=== PATIENT | male | born 1940 | race Caucasian/White ===

== ENCOUNTER 2017-07-15 17:33 | Emergency (ER) | payer MEDICARE, OTHER ==
[~2017-07-15] VITALS: Ht 162.6 cm; Wt 59.0 kg
[~2017-07-15 17:33] MED LIST: AMOX500 PO; ASPI81EC PO; ATEN50 PO; ATOR10 PO; Aspir 8181 MG PO; CHOL10002 PO; CITA20; DILT60ER; DULO60 PO; FOLBIC RF TABL1 EACH PO; FOLI1 PO; FURO20 PO; IBUP800 PO; LISI20 PO; LISI5 PO; LOVASTATIN; Lipitor20 MG PO; Micro-K10 MEQ PO; NAPR500; NITRO TIME PO; Naprosyn500 MG PO; OXYACE5T PO; Roxicodone5 MG PO; STATIN; UNKNOWN BP MED; WARF5; WARF5 PO; [UNRECOGNIZED DRUG - REMARK]; [UNRECOGNIZED DRUG - REMARK]
[2017-07-15 18:09] LABS: BASOPHILS ABSOLUTE AUTO 0.08 K/mm3 (0.00-0.23); BASOPHILS PERCENT AUTO 1 % (0-2); EOSINOPHILS PERCENT AUTO 3 % (0-6); Hematocrit 39.9 % (37.0-53.0); Hemoglobin 12.8 g/dL (13.5-17.5); IMMATURE GRAN ABSOLUTE AUTO 0.02 K/mm3 (0.00-0.10); IMMATURE GRAN PERCENT AUTO 0 % (0-1); LYMPHOCYTES ABSOLUTE AUTO 2.11 K/mm3 (0.84-5.20); LYMPHOCYTES PERCENT AUTO 34 % (21-46); MONOCYTES ABSOLUTE AUTO 0.66 K/mm3 (0.16-1.47); MONOCYTES PERCENT AUTO 11 % (4-13); Mean Corpuscular HGB 32.1 pg (26.0-34.0); Mean Corpuscular HGB Conc 32.1 g/dL (31.5-36.5); Mean Corpuscular Volume 100 fL (80-100); Mean Platelet Volume 11.1 fL (9.1-12.4); NEUTROPHILS ABSOLUTE AUTO 3.14 K/mm3 (1.96-9.15); NEUTROPHILS PERCENT AUTO 51 % (41-73); Platelet Count 151 K/mm3 (150-400); RDW Standard Deviation 51.7 fL (35.1-46.3); Red Blood Cell Count 3.99 M/mm3 (4.30-5.90); White Blood Cell Count 6.21 K/mm3 (4.00-11.30)
[2017-07-15 18:25] LABS: Anion Gap 6 mmol/L (6-16); Blood Urea Nitrogen 17 mg/dL (8-24); Bun/Creatinine Ratio 14.5 (12.0-20.0); CO2, Blood 28 mmol/L (21-32); Calcium, Blood 8.7 mg/dL (8.5-10.1); Chloride, Blood 112 mmol/L (98-108); Creatinine, Blood 1.17 mg/dL (0.60-1.20); Glomerular Filtration Rate >60 (60-); Glucose, Blood 80 mg/dL (70-99); Potassium, Blood 4.5 mmol/L (3.5-5.5); Sodium, Blood 146 mmol/L (136-145)
== END 2017-07-15 19:36 | disposition home or self-care (01) ==
LOC: ER 17:33
PROVIDERS: Emergency Medicine
DX: I48.91 Unspecified atrial fibrillation (principal); Z79.899 Other long term (current) drug therapy; Z79.82 Long term (current) use of aspirin; I25.10 Atherosclerotic heart disease of native coronary artery without angina pectoris; J44.9 Chronic obstructive pulmonary disease, unspecified; I10 Essential (primary) hypertension; E78.5 Hyperlipidemia, unspecified; F03.90 Unspecified dementia, unspecified severity, without behavioral disturbance, psychotic disturbance, mood disturbance, and anxiety; F17.210 Nicotine dependence, cigarettes, uncomplicated
CPT/HCPCS: 71046; 80048; 83735; 85025; 93005; 93010; 96374; 99284

== ENCOUNTER 2018-07-29 22:00 | Observation (INO) | payer MEDICARE, OTHER ==
[~2018-07-29] VITALS: Ht 167.6 cm; Wt 59.0 kg
[2018-07-29] MEDS ORDERED: METO25ER PO (22:24)
[2018-07-29 22:25] LABS: BASOPHILS ABSOLUTE AUTO 0.09 K/mm3 (0.00-0.23); BASOPHILS PERCENT AUTO 1 % (0-2); EOSINOPHILS ABSOLUTE AUTO 0.19 K/mm3 (0.00-0.68); EOSINOPHILS PERCENT AUTO 2 % (0-6); Hematocrit 39.2 % (37.0-53.0); Hemoglobin 12.1 g/dL (13.5-17.5); IMMATURE GRAN ABSOLUTE AUTO 0.04 K/mm3 (0.00-0.10); IMMATURE GRAN PERCENT AUTO 1 % (0-1); LYMPHOCYTES ABSOLUTE AUTO 2.18 K/mm3 (0.84-5.20); LYMPHOCYTES PERCENT AUTO 28 % (21-46); MONOCYTES ABSOLUTE AUTO 0.64 K/mm3 (0.16-1.47); MONOCYTES PERCENT AUTO 8 % (4-13); Mean Corpuscular HGB 31.5 pg (26.0-34.0); Mean Corpuscular HGB Conc 30.9 g/dL (31.5-36.5); Mean Corpuscular Volume 102 fL (80-100); Mean Platelet Volume 10.7 fL (9.1-12.4); NEUTROPHILS ABSOLUTE AUTO 4.62 K/mm3 (1.96-9.15); NEUTROPHILS PERCENT AUTO 60 % (41-73); Platelet Count 149 K/mm3 (150-400); RDW Coefficient Variation 13.7 % (11.7-14.2); RDW Standard Deviation 51.5 fL (35.1-46.3); Red Blood Cell Count 3.84 M/mm3 (4.30-5.90); White Blood Cell Count 7.76 K/mm3 (4.00-11.30)
[2018-07-29 22:45] LABS: Alanine Aminotransfer (ALT/SGP 23 U/L (12-78); Albumin, Blood 3.2 g/dL (3.4-5.0); Albumin/Globulin Ratio 1.1 (0.8-1.8); Alk Phos 65 U/L (50-136); Anion Gap 8 mmol/L (6-16); Aspartate Aminotrans (AST/SGOT 29 U/L (12-37); Bilirubin, Total 0.4 mg/dL (0.1-1.0); Blood Urea Nitrogen 24 mg/dL (8-24); Bun/Creatinine Ratio 14.2 (12.0-20.0); CO2, Blood 26 mmol/L (21-32); Calcium, Blood 8.4 mg/dL (8.5-10.1); Chloride, Blood 113 mmol/L (98-108); Creatinine, Blood 1.69 mg/dL (0.60-1.20); Glomerular Filtration Rate 42 (60-); Glucose, Blood 98 mg/dL (70-99); Potassium, Blood 4.4 mmol/L (3.5-5.5); Sodium, Blood 147 mmol/L (136-145); Total Protein, Blood 6.2 g/dL (6.4-8.2); Troponin I 0.049 ng/mL (0.000-0.040)
[2018-07-30 05:41] LABS: BASOPHILS ABSOLUTE AUTO 0.07 K/mm3 (0.00-0.23); BASOPHILS PERCENT AUTO 1 % (0-2); EOSINOPHILS ABSOLUTE AUTO 0.17 K/mm3 (0.00-0.68); EOSINOPHILS PERCENT AUTO 3 % (0-6); Hematocrit 36.1 % (37.0-53.0); Hemoglobin 11.3 g/dL (13.5-17.5); IMMATURE GRAN ABSOLUTE AUTO 0.02 K/mm3 (0.00-0.10); IMMATURE GRAN PERCENT AUTO 0 % (0-1); LYMPHOCYTES ABSOLUTE AUTO 1.67 K/mm3 (0.84-5.20); LYMPHOCYTES PERCENT AUTO 26 % (21-46); MONOCYTES ABSOLUTE AUTO 0.61 K/mm3 (0.16-1.47); MONOCYTES PERCENT AUTO 9 % (4-13); Mean Corpuscular HGB Conc 31.3 g/dL (31.5-36.5); Mean Corpuscular Volume 102 fL (80-100); Mean Platelet Volume 11.3 fL (9.1-12.4); NEUTROPHILS ABSOLUTE AUTO 3.92 K/mm3 (1.96-9.15); NEUTROPHILS PERCENT AUTO 61 % (41-73); Platelet Count 137 K/mm3 (150-400); RDW Coefficient Variation 13.7 % (11.7-14.2); RDW Standard Deviation 51.9 fL (35.1-46.3); Red Blood Cell Count 3.53 M/mm3 (4.30-5.90); White Blood Cell Count 6.46 K/mm3 (4.00-11.30)
[2018-07-30 06:00] LABS: Bun/Creatinine Ratio 17.7 (12.0-20.0); Calcium, Blood 8.5 mg/dL (8.5-10.1); Creatinine, Blood 1.64 mg/dL (0.60-1.20); Potassium, Blood 4.1 mmol/L (3.5-5.5)
--- NOTE | 2018-07-30 06:01 | NUR ---
SHIFT SUMMARY AND TRANSFER NOTE: PT NW ED ADMIT LATE TONIGHT. PER REPORT, PT HAD A SYNCOPIAL EPISODE AND R SIDE DEFICITS. UPON ARRIVAL TO ER, SYMPTOMS HAD RESOLVED. PT FOUND TO BE IN A FIB c RVR. PT CONVERTD BACK TO NSR IN THE ER. PT ADMITTED OBS STATUS TO [facility] SYMPTOMS, TELEMETRY, AND ECHO. PT ARRIVED TO UNIT VIA STRETCHER AND AMBULATES 2 PER ASSIST TO BED. PT IS ALERT TO SELF AND PLACE ONLY, ANSWERS SOME Q' APPROP, FOLLOWS COMMANDS. THIS IS PT BASELINE. TELMETRY IN PLACE; NSR @ 88 BPM PER MANAGER CUSTOMS. PT IS CONTINENT/INCONTINENT. PT HAS VRY FEW TEETH; SOFT CARDIAC DIET ORDERED FOR PT COMFORT. NO OTHER CHANGES TO REPORT. WILL CONT TO MONITOR AND PROVIDE CARE UNTIL PRESUMED BY ONCOMING RN.
[2018-07-30] MEDS ORDERED: ATOR20 PO (14:42)
[2018-07-30] MEDS ORDERED: METO25ER PO (14:43)
[2018-07-30] MEDS ORDERED: ASPI81CH (14:44)
[2018-07-30] MEDS ORDERED: ELIQUIS2.5 MG PO (14:44)
--- NOTE | 2018-07-30 17:02 | NUR ---
DR LOPEZ CALLED, ECHO REPORT READY FOR HIS REVIEW. RESULTS READ OVER THE PHONE, DR LOPEZ STATES THAT PT IS OKAY TO DISCHARGE HOME
--- NOTE | 2018-07-30 19:26 | NUR ---
DISCHARGE SUMMARY PT DISCHARGED TO HOME. DISCHARGE INSTRUCTIONS COMPLETED WITH PT'S SON. PT LEFT ROOM VIA WHEELCHAIR AND DIRECTOR DIGITAL COMMUNICATIONS ESCORT PRIOR TO THIS NOTE. PT INSTRUCTED TO TAKE MEDICATIONS PRESCRIBED AND TO FOLLOW UP WITH PCP WITHIN ONE WEEK. PT AND FAMILY MEMBER AGREE
== END 2018-07-30 18:52 | disposition home or self-care (01) ==
LOC: ER 22:00 → MEDS 22:01 → EDPENDDIS 07-30 16:25 → ENPENDDIS 07-30 16:25 → MEDS 07-30 18:52
PROVIDERS: Emergency Medicine; ADMIT Hospitalist
DX: G45.9 Transient cerebral ischemic attack, unspecified (principal); R55 Syncope and collapse; E87.0 Hyperosmolality and hypernatremia; I12.9 Hypertensive chronic kidney disease with stage 1 through stage 4 chronic kidney disease, or unspecified chronic kidney disease; N18.3 Chronic kidney disease, stage 3 (moderate); J44.9 Chronic obstructive pulmonary disease, unspecified; I48.0 Paroxysmal atrial fibrillation; F03.90 Unspecified dementia, unspecified severity, without behavioral disturbance, psychotic disturbance, mood disturbance, and anxiety; I25.10 Atherosclerotic heart disease of native coronary artery without angina pectoris; R77.8 Other specified abnormalities of plasma proteins; E78.5 Hyperlipidemia, unspecified; M19.90 Unspecified osteoarthritis, unspecified site; Z87.891 Personal history of nicotine dependence; Z79.899 Other long term (current) drug therapy
CPT/HCPCS: 36415; 51701; 70450; 80048; 80053; 82947; 84484; 85025; 93005; 93010; 93306; 96360; 96361; 96372; 97116; 97162; 97166; 97530; 97535; 99285-25; G0378; J1650; J7040

== ENCOUNTER 2018-11-24 21:25 | Observation (INO) | payer MEDICARE, OTHER ==
[~2018-11-24] VITALS: Ht 175.3 cm; Wt 63.5 kg
[~2018-11-24 21:25] MED LIST changes: +ASPI81CH PO; +ELIQUIS5 MG PO; +METO25ER PO
[2018-11-24 21:45] LABS: BASOPHILS ABSOLUTE AUTO 0.08 K/mm3 (0.00-0.23); BASOPHILS PERCENT AUTO 1 % (0-2); EOSINOPHILS ABSOLUTE AUTO 0.25 K/mm3 (0.00-0.68); EOSINOPHILS PERCENT AUTO 4 % (0-6); Hemoglobin 12.5 g/dL (13.5-17.5); IMMATURE GRAN ABSOLUTE AUTO 0.01 K/mm3 (0.00-0.10); IMMATURE GRAN PERCENT AUTO 0 % (0-1); LYMPHOCYTES ABSOLUTE AUTO 2.09 K/mm3 (0.84-5.20); LYMPHOCYTES PERCENT AUTO 37 % (21-46); MONOCYTES ABSOLUTE AUTO 0.55 K/mm3 (0.16-1.47); MONOCYTES PERCENT AUTO 10 % (4-13); Mean Corpuscular HGB 32.4 pg (26.0-34.0); Mean Corpuscular HGB Conc 32.1 g/dL (31.5-36.5); Mean Corpuscular Volume 101 fL (80-100); Mean Platelet Volume 10.4 fL (9.1-12.4); NEUTROPHILS ABSOLUTE AUTO 2.67 K/mm3 (1.96-9.15); NEUTROPHILS PERCENT AUTO 47 % (41-73); Platelet Count 143 K/mm3 (150-400); RDW Coefficient Variation 13.3 % (11.7-14.2); Red Blood Cell Count 3.86 M/mm3 (4.30-5.90); White Blood Cell Count 5.65 K/mm3 (4.00-11.30)
[2018-11-24 22:07] LABS: Alanine Aminotransfer (ALT/SGP 20 U/L (12-78); Albumin, Blood 3.3 g/dL (3.4-5.0); Albumin/Globulin Ratio 1.1 (0.8-1.8); Alk Phos 56 U/L (50-136); Anion Gap 4 mmol/L (6-16); Aspartate Aminotrans (AST/SGOT 18 U/L (12-37); Bilirubin, Total 0.4 mg/dL (0.1-1.0); Blood Urea Nitrogen 25 mg/dL (8-24); Bun/Creatinine Ratio 18.1 (12.0-20.0); CO2, Blood 29 mmol/L (21-32); Calcium, Blood 8.5 mg/dL (8.5-10.1); Chloride, Blood 109 mmol/L (98-108); Creatinine, Blood 1.38 mg/dL (0.60-1.20); Globulin, Blood 3.1 g/dL (2.2-4.0); Glomerular Filtration Rate 53 (60-); Glucose, Blood 99 mg/dL (70-99); Potassium, Blood 4.3 mmol/L (3.5-5.5); Sodium, Blood 142 mmol/L (136-145); Total Protein, Blood 6.4 g/dL (6.4-8.2); Troponin I <0.015 ng/mL (0.000-0.040)
[2018-11-25 05:36] LABS: Hematocrit 36.9 % (37.0-53.0); Hemoglobin 11.9 g/dL (13.5-17.5); Mean Corpuscular HGB 32.3 pg (26.0-34.0); Mean Corpuscular HGB Conc 32.2 g/dL (31.5-36.5); Mean Corpuscular Volume 100 fL (80-100); Mean Platelet Volume 10.7 fL (9.1-12.4); Platelet Count 134 K/mm3 (150-400); RDW Coefficient Variation 13.4 % (11.7-14.2); RDW Standard Deviation 49.9 fL (35.1-46.3); Red Blood Cell Count 3.68 M/mm3 (4.30-5.90); White Blood Cell Count 5.34 K/mm3 (4.00-11.30)
[2018-11-25 05:56] LABS: Albumin, Blood 3.1 g/dL (3.4-5.0); Bilirubin, Total 0.5 mg/dL (0.1-1.0); Bun/Creatinine Ratio 19.7 (12.0-20.0); Calcium, Blood 8.6 mg/dL (8.5-10.1); Creatinine, Blood 1.42 mg/dL (0.60-1.20); Potassium, Blood 4.5 mmol/L (3.5-5.5); Total Protein, Blood 6.1 g/dL (6.4-8.2)
--- NOTE | 2018-11-25 07:43 | NUR ---
NOC SHIFT SUMMARY PT ADMITTED THIS MORNING. WAS FOUND DOWN AT HOME. BROUGHT TO ED VIA EMS. PT HAS HISTORY OF DEMENTIA AND IS CONFUSED AT BASELINE. ON TELE LAST CHECK NSR RATE 60 PER DATA WAREHOUSE ADMINISTRATOR. PLEASANT AND COOPERATIVE WITH CARE. REPORT TO ONCOMING RN.
--- NOTE | 2018-11-25 18:28 | NUR ---
SHIFT SUMMARY: NO ACUTE CHANGES TO REPORT THIS SHIFT. PT HX DEMENTIA; CONFUSED; COOPERATIVE WITH CARE. NO C/O PAIN THIS SHIFT. TELE IN PLACE; SR @ 62 PER GETTERING FILAMENT MACHINE OPERATOR DURING MORNING ASSESSMENT. PT VOIDING SPONTANEOUSLY; IWD=[id number] @ 1630. IV REHYDRATION CONPLETED. PT EXPECTED TO D/C HOME ON 11/26. WCTM.
--- NOTE | 2018-11-26 07:27 | NUR ---
NOC SHIFT SUMMARY PATIENT WITH HISTORY OF DEMENTIA FOUND DOWN AT HOME. HE IS PLEASANT AND COOPERATIVE WITH CARE THIS NIGHT. SLEPT FOR MUCH OF NIGHT. CONTINENT/INCONTINENT. HAS VISITOR IN THIS EVENING AND ENJOYED TALKING WITH HER. BLADDER SCAN THIS MORNING SHOWED 195ML. NO ACUTE CHANGES NOTED THIS NIGHT VSS. REPORT TO ONCOMING RN.
[2018-11-26 13:40] LABS: Source, Urine Clean Catch
[2018-11-26 13:55] LABS: Bilirubin, Urine Neg (Neg); Blood, Urine 1+ (Neg); Glucose Qualitative, Urine Neg (Neg); Ketones, Urine 1+ (Neg); Leukocyte Esterase, Urine Neg (Neg); Nitrite, Urine Neg (Neg); Protein, Urine 1+ (Neg); Urobilinogen, Urine NORM (Normal)
[2018-11-26 14:07] LABS: Appearance, Urine Clear (Clear); Color, Urine Yellow (P-Yellow)
[2018-11-26 15:21] LABS: Bacteria Not Seen /hpf; Red Blood Cells, Urine Rare /hpf (0-2); Squamous Epithelial Cells Not Seen /hpf (Few); White Blood Cells, Urine Not Seen /hpf (0-5)
--- NOTE | 2018-11-26 16:19 | NUR ---
PATIENT DISCHARGE: PATIENT DISCHARGED TO HOME/ XFR TO HOME HEALTH THIS SHIFT. MEDICATION RECONCILIATION COMPLETED; MED LIST FAXED TO [facility] [address]. DISCHARGE EDUCATION COMPLETED WITH PT AND FAMILY & CAREGIVER. PATIENT TRANSPORTED TO EXIT BY [facility] STAFF WITH WHEELCHAIR AT 1525. PATIENT DEPARTED [facility] VIA PRIVATE AUTO.
== END 2018-11-26 15:32 | disposition home health service (06) ==
LOC: ER 21:25 → MEDS 21:26 → ER 11-25 03:00 → MEDS 11-25 03:03 → ENPENDDIS 11-26 11:30 → MEDS 11-26 15:32
PROVIDERS: Emergency Medicine; ADMIT Internal Medicine
DX: R55 Syncope and collapse (principal); R00.1 Bradycardia, unspecified; R53.1 Weakness; S22.089A Unspecified fracture of T11-T12 vertebra, initial encounter for closed fracture; I48.0 Paroxysmal atrial fibrillation; I12.9 Hypertensive chronic kidney disease with stage 1 through stage 4 chronic kidney disease, or unspecified chronic kidney disease; N18.3 Chronic kidney disease, stage 3 (moderate); I25.10 Atherosclerotic heart disease of native coronary artery without angina pectoris; J44.9 Chronic obstructive pulmonary disease, unspecified; F03.90 Unspecified dementia, unspecified severity, without behavioral disturbance, psychotic disturbance, mood disturbance, and anxiety; M54.5 Low back pain; G89.29 Other chronic pain; Z79.899 Other long term (current) drug therapy; Z79.82 Long term (current) use of aspirin; Z79.02 Long term (current) use of antithrombotics/antiplatelets
CPT/HCPCS: 36415; 71045; 71275; 80053; 81001; 83735; 84484; 85025; 85027; 93005; 93010; 96372; 97116; 97163; 97166; 97530; 99285-25; G0378; J1650; J7030; J7040; Q9967

== ENCOUNTER 2021-03-25 12:20 | Inpatient (IN) | payer MEDICARE, OTHER ==
[~2021-03-25] VITALS: Ht 162.6 cm; Wt 52.2 kg
[2021-03-25 15:31] LABS: BASOPHILS ABSOLUTE AUTO 0.07 K/mm3 (0.00-0.23); BASOPHILS PERCENT AUTO 1 % (0-2); EOSINOPHILS ABSOLUTE AUTO 0.28 K/mm3 (0.00-0.68); EOSINOPHILS PERCENT AUTO 4 % (0-6); Hematocrit 47.1 % (37.0-53.0); Hemoglobin 15.1 g/dL (13.5-17.5); IMMATURE GRAN ABSOLUTE AUTO 0.05 K/mm3 (0.00-0.10); IMMATURE GRAN PERCENT AUTO 1 % (0-1); LYMPHOCYTES ABSOLUTE AUTO 1.62 K/mm3 (0.84-5.20); LYMPHOCYTES PERCENT AUTO 20 % (21-46); MONOCYTES ABSOLUTE AUTO 0.67 K/mm3 (0.16-1.47); MONOCYTES PERCENT AUTO 8 % (4-13); Mean Corpuscular HGB 31.1 pg (26.0-34.0); Mean Corpuscular HGB Conc 32.1 g/dL (31.5-36.5); Mean Corpuscular Volume 97 fL (80-100); Mean Platelet Volume 10.6 fL (9.1-12.4); NEUTROPHILS ABSOLUTE AUTO 5.24 K/mm3 (1.96-9.15); NEUTROPHILS PERCENT AUTO 66 % (41-73); Platelet Count 174 K/mm3 (150-400); RDW Standard Deviation 50.4 fL (35.1-46.3); Red Blood Cell Count 4.85 M/mm3 (4.30-5.90); White Blood Cell Count 7.93 K/mm3 (4.00-11.30)
[2021-03-25 15:48] LABS: Albumin, Blood 3.2 g/dL (3.4-5.0); Albumin/Globulin Ratio 0.8 (0.8-1.8); Bilirubin, Total 0.8 mg/dL (0.1-1.0); Bun/Creatinine Ratio 21.3 (12.0-20.0); Calcium, Blood 9.2 mg/dL (8.5-10.1); Creatinine, Blood 1.97 mg/dL (0.60-1.20); Globulin, Blood 4.2 g/dL (2.2-4.0); Potassium, Blood 5.4 mmol/L (3.5-5.5); Total Protein, Blood 7.4 g/dL (6.4-8.2)
[2021-03-25 16:02] LABS: Influenza A, PCR NEGATIVE (NEGATIVE); Influenza B, PCR NEGATIVE (NEGATIVE); Resp Syncytial Virus, PCR NEGATIVE (NEGATIVE); SARS-Cov-2 (COVID-19) PCR, MMC NEGATIVE (NEGATIVE)
--- NOTE | 2021-03-25 18:31 | NUR ---
PATIENT ARRIVED TO THE FLOOR FROM ER VIA STETCHER. TRANFERED WITH SLIDE SHEET TO BED. CHANGED LINENS UNDER PATIENT THEY WERE SOILED. COMPLAINED OF LEFT HIP PAIN WITH MOVEMENT. STARTED ANOTHER IV THE ONE IN RAC FLUSHES BUT PATIENT KEEPS ARM BENT ALL THE TIME, PLACED IV IN LFA. PATIENT IS ALERT TO SELF ONLY, PLEASANT. BED ALARM ON AND FUNCTIONING WITH SIDE RAILS UP X 3. PATIENT WILL REMAIN ON BEDREST. PATIENT TO BE NPO AFTER MIDNIGHT. ADMIT ASSESSMENT COMPLETE FROM HISTORY. NO SIGNS OR SYMPTOMS ACUTE DISTRESS NOTED, CALL LIGHT IN REACH, STAFF WILL ANTICIPATE NEEDS PATIENT DOES NOT KNOW HOW TO USED CALL LIGHT. WILL MONITOR.
[2021-03-26 04:29] LABS: Hematocrit 39.6 % (37.0-53.0); Mean Corpuscular HGB 31.7 pg (26.0-34.0); Mean Corpuscular HGB Conc 32.8 g/dL (31.5-36.5); Mean Corpuscular Volume 97 fL (80-100); Mean Platelet Volume 10.5 fL (9.1-12.4); Platelet Count 159 K/mm3 (150-400); RDW Coefficient Variation 13.9 % (11.7-14.2); RDW Standard Deviation 49.7 fL (35.1-46.3); White Blood Cell Count 7.12 K/mm3 (4.00-11.30)
[2021-03-26 05:41] LABS: Bun/Creatinine Ratio 23.2 (12.0-20.0); Calcium, Blood 8.4 mg/dL (8.5-10.1); Creatinine, Blood 1.85 mg/dL (0.60-1.20); Magnesium, Blood 1.7 mg/dL (1.6-2.4); Potassium, Blood 4.5 mmol/L (3.5-5.5)
--- NOTE | 2021-03-26 06:09 | NUR ---
SHIFT SUMMARY: PT A&O TO SELF ONLY. CALM AND COOPERATIVE WITH CARE. TOLERATED DINNER AND A SNACK AT BEGINNING OF SHIFT. PT ABLE TO FEED SELF. PT HAS BEEN KEPT NPO SINCE MIDNIGHT FOR POSSIBLE SURGERY TODAY. PT VOIDING ADEQUATE AMOUNT. INCONTINENT. MEDICATED ONCE WITH 25MCG OF FENTANYL PER EMAR. IVF INFUSING PER EMAR. PLAN FOR POSSIBLE OR TODAY.
--- NOTE | 2021-03-26 07:08 | NUR ---
PT ASKED ABOUT HOME SITUATION AND WHO HE LIVES WITH. PT REPORTS LIVING WITH KYRA WHO IS HIS SON. PT STATES "WHEN I CALL CALL OUT FOR KYRA HE DOESN'T COME". PT ASKED HOW HE IS TREATED AT HOME AND PT POINTED TO BRUISE LOCATED ON LEFT HAND AND REPORTED THAT THE BRUISE IS D/T KYRA SQUEEZING HIS HAND. NO OTHER SIGNIFICANT BRUISING OR ABRASIONS PRESENT. DAY RN TO NOTIFY APS.
--- NOTE | 2021-03-26 09:48 | NUR ---
APS NOTIFIED OF NOC RN CONCERNS (SEE PREVIOUS NOTE)
--- NOTE | 2021-03-26 11:23 | NUR ---
FREQUENT ROUNDS DONE, NOTED PT. SLEEPING FOR MORE THAN 3 HRS., NOTIFIED PRIMARY RN, WAS TOLD TO LEAVE PT. SLEEPING FOR NOW. ROUNDING PER PROTOCOL THEN PRN.
--- NOTE | 2021-03-26 17:33 | NUR ---
PATIENT IS CURRENTLY LYING IN BED AND IS ON BED REST. PATIENT IS PLEASANTLY CONFUSED. ABLE TO TELL THIS NURSE WHO HE IS BUT DOES NOT KNOW WHY HE IS HERE. PATIENT HAS BEEN SLEEPING MOST OF THE DAY, BUT WAKES EASILY. PATIENT WILL BE NPO AFTER MIDNIGHT TONIGHT FOR SURGERY TOMORROW. TALKED WITH APS TODAY. NO SIGNS OR SYMPTOMS ACUTE DISTRESS NOTED. CALL LIGHT IN REACH.
--- NOTE | 2021-03-27 05:48 | NUR ---
SHIFT SUMMARY. ADMITTED FOR L FEMUR FX. NO ACUTE CHANGES OVERNIGHT. PT WAS SHAKY AT THE BEGINNING OF SHIFT. UNABLE TO EXPRESS PAIN. MEDICATED FOR PAIN X1 WITH 25MCG FENTANYL. TOLERATING PO INTAKE LAST NIGHT. NPO AFTER MIDNIGHT. BEDREST. ANTICIPATING SURGICAL PROCEDURE TODAY. PT SLEPT GOOD OVERNIGHT. AOX1. HX DEMENTIA. PLEASANTLY CONFUSED. CALM AND COOPERATIVE WITH CARE. CALL LIGHT WITHIN REACH. WILL PROVIDE REPORT TO ONCOMING NURSE.
[2021-03-27 06:11] LABS: Hematocrit 36.1 % (37.0-53.0); Mean Corpuscular HGB 31.7 pg (26.0-34.0); Mean Corpuscular HGB Conc 33.2 g/dL (31.5-36.5); Mean Corpuscular Volume 96 fL (80-100); Mean Platelet Volume 10.5 fL (9.1-12.4); Platelet Count 151 K/mm3 (150-400); RDW Coefficient Variation 13.7 % (11.7-14.2); RDW Standard Deviation 47.9 fL (35.1-46.3); Red Blood Cell Count 3.78 M/mm3 (4.30-5.90); White Blood Cell Count 6.98 K/mm3 (4.00-11.30)
[2021-03-27 06:45] LABS: Thyroid Stimulating Hormone 1.55 uIU/mL (0.360-4.800)
[2021-03-27 06:46] LABS: Albumin, Blood 2.4 g/dL (3.4-5.0); Albumin/Globulin Ratio 0.7 (0.8-1.8); Bilirubin, Total 0.8 mg/dL (0.1-1.0); Bun/Creatinine Ratio 21.3 (12.0-20.0); Calcium, Blood 8.1 mg/dL (8.5-10.1); Creatinine, Blood 1.27 mg/dL (0.60-1.20); Globulin, Blood 3.6 g/dL (2.2-4.0); Potassium, Blood 4.1 mmol/L (3.5-5.5)
--- NOTE | 2021-03-27 13:30 | NUR ---
REPORT TO GAIL PENNINGTON
--- NOTE | 2021-03-27 13:50 | NUR ---
NOZIN NASAL BOILER OPERATORS SUPERVISOR X3 AMPULES USED TO CLEAN NARES BIALT PER ORDER.
--- NOTE | 2021-03-27 19:48 | NUR ---
RECEIVED PATIENT TO UNIT AT 1845. ALERT, RESPONDS TO VOICE, ABLE TO LIFT HIS HEAD UP AND LOOK AROUND WHEN CALLING HIS NAME. NON VERBAL. APPEARS RELAXED. AQUACEL DRESSING CLEAN DRY AND INTACT TO LEFT HIP. POST OP VITALS INITIATED, VS STABLE. SAFETY MAINTAINED, CALL KENNY IN REACH.
--- NOTE | 2021-03-27 21:18 | NUR ---
VERY PLEASANT ALERT TO SELF, ABLE TO HOLD COVERSATION, TOOK MEDICATION WITHOUT DIFFICULTY.
--- NOTE | 2021-03-28 06:31 | NUR ---
ALERT TO SELF, UP MOST OF NIGHT WATCHING TV. INCONTINENT OF URINE, UPON REPOSITION PATIENT COMPLAINED OF PAIN, MEDICATED WITH ULTRAM 50MG PO, EFFECTIVE RELIEF. ATE 100% OF DINNER AND SNACK THIS MORNING, TOLERATED WELL. REMAINED ON BEDREST. AQUACEL DRESSING CLEAN DRY AND INTACT TO LEFT HIP. SAFETY MAINTAINED, CALL KENNY IN REACH.
--- NOTE | 2021-03-28 18:27 | NUR ---
PATIENT CURRENTLY SITTING UP IN BED EATING. HIS SON IS AT BEDSIDE ASSISTING HIM TO EAT. PATIENT SAT UP IN CHAIR TODAY AND DID WELL. MUCH MORE ALERT TODAY. ORIENTED TO SELF ONLY. ASSIST X 2 TO GET BACK TO BED. PT WORKED WITH PATIENT TODAY. NO SIGNS OR SYMPTOMS ACUTE DISTRESS NOTED. STAFF ANTICIPATES NEEDS. USED URINAL ONCE TODAY. WILL MONITOR.
--- NOTE | 2021-03-28 21:24 | NUR ---
PATIENTS HEART RATE BTW 147-160. NOTIFIED DR. HERNANDEZ, RECEIVED ORDER TO ADMINISTER LOPRESSOR 5MG IV. REPORTED FROM TELEMETRY RYTHM AFIB 147. POST LOPRESSOR PER TELE, HEART RATE/RHYTHM AFIB RANGING BTW 80-120.
--- NOTE | 2021-03-28 21:37 | NUR ---
PER TELE PATIENT CONVERTED TO S/R 88.
[2021-03-29 05:09] LABS: Hematocrit 33.8 % (37.0-53.0); Mean Corpuscular HGB 31.5 pg (26.0-34.0); Mean Corpuscular HGB Conc 32.5 g/dL (31.5-36.5); Mean Corpuscular Volume 97 fL (80-100); Mean Platelet Volume 10.5 fL (9.1-12.4); Platelet Count 149 K/mm3 (150-400); RDW Coefficient Variation 14.1 % (11.7-14.2); RDW Standard Deviation 49.5 fL (35.1-46.3); Red Blood Cell Count 3.49 M/mm3 (4.30-5.90); White Blood Cell Count 8.92 K/mm3 (4.00-11.30)
[2021-03-29 06:03] LABS: Bun/Creatinine Ratio 22.8 (12.0-20.0); Calcium, Blood 8.1 mg/dL (8.5-10.1); Creatinine, Blood 1.36 mg/dL (0.60-1.20); Potassium, Blood 4.4 mmol/L (3.5-5.5)
--- NOTE | 2021-03-29 06:06 | NUR ---
ALERT, ABLE TO ANSWER APPROPRIATELY AT TIMES. BP 160/106, RECEIVED HYDRALAZINE IV, BP DECREASED 130/95. MEDICATED WITH ULTRAM X'S 2 DUE TO C/O PAIN TO LEFT HIP WHEN REPOSITIONING PATIENT, EFFECTIVE RELIEF. PATIENT INCONTINENT OF URINE THROUGH NIGHT. AQUACEL TO LEFT HIP CLEAN DRY AND INTACT, SAFETY MAINTAINED.
--- NOTE | 2021-03-29 17:45 | NUR ---
SHIFT SUMMARY: POD 2 LEFT REINA HIP PATIENT IS ALERT TO SELF ONLY. LEFT HIP HAS SMALL REDNESS AROUND THE AQUACEL. OTHERWISE AQUACEL IS C/D/I. PATIENT IS ABLE TO MOVE FINGERS AND TOES WHEN ASKED. PATIENT IS A 2 PERSON ASSIST WHEN CHANGING HIS ATTENDS. PATIENT DID RECIEVE PO PAIN MEDS OF TRAMADOL AND TYLENOL. HE HAS BEEN ON AND OFF SLEEPING THROUGHOUT THE SHIFT BUT IS EASILY AROUSED BY TOUCH. PATIENT IS TOLERATING PO INTAKE AND IS VOIDING IN HIS BRIEFS. CALL LIGHT WITHIN REACH. PATIENT IS ASLEEP IN BED AT THIS TIME. THE PLAN IS TO BE DISCHARGED TO A [facility]. SON REPORTS THAT HE DOESN'T NORMALLY WALK AT HOME AND THAT THE SON CARRIES HIM AROUND. PHYSICAL THERAPY REPORTS IT IS NOT APPROPRIATE TO WORK WITH THEM SINCE HE AT BASELINE DOESN'T WALK.
--- NOTE | 2021-03-30 06:17 | NUR ---
ALERT TO SELF. SLEPT INTERMITTENTLY THROUGH NIGHT, WATCHING TV THROUGH THE NIGHT. INCONTINENT OF URINE, CLEANED AND REPOSITIONED. MEDICATED WITH ULTRAM X'S 1 DUE TO C/O PAIN UPON REPOSITIONING, EFFECTIVE RELIEF. LEFT HIP SLIGHT PINK AROUND AQUACEL DRESSING, DRESSING CLEAN DRY AND INTACT. SAFETY MAINTAINED,CALL KENNY IN REACH.
--- NOTE | 2021-03-30 16:02 | NUR ---
SHIFT SUMMARY POD 4 REINA HIP. AQUACEL CDI. PT REPORTS PAIN THAT RESOLVES WITH REPOSITIONING. REPOSITIONED FREQUENTLY. TOLERATING PO WELL. MOVING SELF IN BED. INC OF URINE, ATTENDS IN PLACE. PLAN IS TO AWAIT PLACEMENT AT A [facility]END[facility] CARE FACILITY.
[2021-03-31 04:06] LABS: Hematocrit 29.3 % (37.0-53.0); Hemoglobin 9.6 g/dL (13.5-17.5); Mean Corpuscular HGB 31.4 pg (26.0-34.0); Mean Corpuscular HGB Conc 32.8 g/dL (31.5-36.5); Mean Corpuscular Volume 96 fL (80-100); Mean Platelet Volume 10.2 fL (9.1-12.4); Platelet Count 169 K/mm3 (150-400); RDW Standard Deviation 49.2 fL (35.1-46.3); Red Blood Cell Count 3.06 M/mm3 (4.30-5.90); White Blood Cell Count 7.46 K/mm3 (4.00-11.30)
[2021-03-31 04:37] LABS: Anion Gap 6 mmol/L (6-16); Blood Urea Nitrogen 26 mg/dL (8-24); CO2, Blood 21 mmol/L (21-32); Calcium, Blood 8.5 mg/dL (8.5-10.1); Chloride, Blood 111 mmol/L (98-108); Creatinine, Blood 1.04 mg/dL (0.60-1.20); Glomerular Filtration Rate >60 (60-); Glucose, Blood 93 mg/dL (70-99); Potassium, Blood 4.3 mmol/L (3.5-5.5); Sodium, Blood 138 mmol/L (136-145)
--- NOTE | 2021-03-31 17:39 | NUR ---
SHIFT SUMMARY POD4 L HIP REPAIR. PT PLEASANTLY CONFUSED TODAY, WOULD FOLLOW DIRECTIONS. DENIED PAIN DURING SHIFT. AQUACEL CDI. PT TOLERATING PO WELL AND FEEDS SELF. INC OF VOID, HELPS WITH CHANGING AND REPOSITIONING. PLAN WILL BE TO AWAIT DISCHARGE PLANNING AND PLACEMENT TOMORROW.
--- NOTE | 2021-04-01 05:42 | NUR ---
SHIFT SUMMARY: NO ACUTE CHANGES THIS SHIFT. PT ALERT TO SELF ONLY. CALM AND COOPERATIVE WITH CARE. PT VOIDING IN ATTENDS. PT HAD A SOFT BM THIS SHIFT. NEW MEPILEX AND AQUACEL DRESSING PLACED THIS SHIFT. PAIN BEING MANAGED WITH ULTRAM PER EMAR. AWAITING PLACEMENT.
--- NOTE | 2021-04-01 11:10 | NUR ---
VIT. D FOR 0900 NOT GIVEN ON TIME NOT AVAILABLE IN [facility] & ANYWHERE, REQUEST SENT TO PHARMACY.
--- NOTE | 2021-04-01 15:56 | NUR ---
SHIFT SUMMARY: PATIENT STAYED IN BED ALL DAY, TRIED MOVING TO HIS RIGHT SIDE TRYING TO REACH THE TRASH CAN, ORIENTED TO SELF BUT DOESN'T KNOW WHERE HE IS AT & CURRENT SITUATION, ASKED FOR CIGARETTE THIS AFTERNOON, ATE 100 % OF HIS LUNCH WITH MINIMAL ASSISTANCE,CALM & COOPERATIVE WITH CARE, IV ACCESS TO LEFT AHND & RIGHT AC ARE PATENT, SALINE LOCKED, DRINKS A LOT OF MILK & WATER, VERY GOOD AMOUNT OF URINE OUTPUT SEVERAL ATTENDS GOT VERY SOAKED, SINUS RHYTHM WITH AVERAGE OF ON THE 70'S HR PER SOLID [facility]E FACILITY SUPERVISOR, NO NEW ISSUES NOTED, AQUACEL DRY & INTACT, NEW ALLEVYN APPLIED TO COCCYX AREA.
--- NOTE | 2021-04-02 05:06 | NUR ---
HEAD OF ACQUISITIONS SUMMARY PT IS DAY 6 POST-OP FROM LEFT HIP FRACTURE REPAIR. PT IS FULL CODE. PT PLEASANTLY CONFUSED AND ONLY ORIENTED TO HIMSELF. PT REPORTS NO PAIN UNTIL HE IS MOVED FOR BED CHANGES. HE HAS BEEN RESTING THROUGHOUT THE NIGHT. PT IS STIFF AND HAS SOME DIFFICULTY MOVING ON HIS OWN. PT DID NOT GET UP THROUGHOUT THE SHIFT. HE IS INCONTINENT. PT ON ROOM AIR AND NO DIFFICULTY BREATHING. DRESSING TO LEFT HIP IS C/D/I. NO OTHER CONCERNS THIS SHIFT.
--- NOTE | 2021-04-02 11:40 | NUR ---
A spiritual care visit was attempted. Pt. was awake, but totally non-verbal. Pt. didn't seem able to respond. No indication that pastoral prayer would be apporopriate.
--- NOTE | 2021-04-02 16:44 | NUR ---
SHIFT SUMMARY: PATIENT ON TELEMETRY WITH SINUS RHYTHMS ALL DAY WITH AVERAGE HR OF ON THE 60'S. ATE ALL HIS MEALS 100%,NO NEW UNUSUALITIES NOTED, PT'S SON CURRENTLY VISITING. ORIENTED TO SELF ONLY.
--- NOTE | 2021-04-03 05:39 | NUR ---
ALERT TO SELF, ABLE TO VERBALIZE NEEDS, CAN FOLLOW COMMANDS. COMPLAINED OF DISCOMFORT UPON REPOSITIONING, AFTER REPOSITIONED PATIENT STATED HE FEELS GOOD. REMAINS INCONTINENT OF URINE, PARISH CARE PROVIDED. TURNED AND REPOSITIONED THROUGH [facility]. AQUACEL DRESSING CLEAN DRY AND INTACT. SAFETY MAINTAINED, CALL KENNY IN REACH.
--- NOTE | 2021-04-03 16:44 | NUR ---
SHIFT SUMMARY: PATIENT SEEN BY DR. RHOADES TODAY, TELEMETRY MONITORING D/C'D,NO NEW UNUSUALITIES NOTED, AWAITS MOTOR AND GENERATOR BRUSH MAKER CARE PLACEMENT, ORIENTED TO SELF, NO S/S OF PAIN NOTED. ATE ALL HIS MEALS 100 %, OFFERED FLUIDS.WILL CONTINURE TO MONITOER.
[2021-04-04 04:07] LABS: BASOPHILS PERCENT AUTO 1 % (0-2); EOSINOPHILS ABSOLUTE AUTO 0.44 K/mm3 (0.00-0.68); EOSINOPHILS PERCENT AUTO 5 % (0-6); Hematocrit 32.5 % (37.0-53.0); Hemoglobin 10.6 g/dL (13.5-17.5); IMMATURE GRAN ABSOLUTE AUTO 0.14 K/mm3 (0.00-0.10); IMMATURE GRAN PERCENT AUTO 2 % (0-1); LYMPHOCYTES ABSOLUTE AUTO 2.42 K/mm3 (0.84-5.20); LYMPHOCYTES PERCENT AUTO 26 % (21-46); MONOCYTES ABSOLUTE AUTO 0.72 K/mm3 (0.16-1.47); MONOCYTES PERCENT AUTO 8 % (4-13); Mean Corpuscular HGB 31.5 pg (26.0-34.0); Mean Corpuscular HGB Conc 32.6 g/dL (31.5-36.5); Mean Corpuscular Volume 96 fL (80-100); Mean Platelet Volume 10.1 fL (9.1-12.4); NEUTROPHILS ABSOLUTE AUTO 5.41 K/mm3 (1.96-9.15); NEUTROPHILS PERCENT AUTO 59 % (41-73); Platelet Count 318 K/mm3 (150-400); RDW Coefficient Variation 13.9 % (11.7-14.2); RDW Standard Deviation 48.9 fL (35.1-46.3); Red Blood Cell Count 3.37 M/mm3 (4.30-5.90); White Blood Cell Count 9.23 K/mm3 (4.00-11.30)
[2021-04-04 04:40] LABS: Bun/Creatinine Ratio 29.3 (12.0-20.0); Calcium, Blood 9.1 mg/dL (8.5-10.1); Creatinine, Blood 1.33 mg/dL (0.60-1.20); Potassium, Blood 4.8 mmol/L (3.5-5.5)
--- NOTE | 2021-04-04 06:23 | NUR ---
ALERT TO SELF, ABLE TO VERBALIZE NEEDS. INCONTINENT OF BOWEL AND BLADDER THROUGH NIGHT. PARISH CARE PROVIED, TURNED AND REPOSITIONED, BARRIER CREAM APPLIED TO BUTTOCKS. SLEPT WELL THROUGH NIGHT. SAFETY MAINTAINED, CALL KENNY IN REACH.
--- NOTE | 2021-04-05 06:19 | NUR ---
ALERT TO SELF, ABLE TO MAKE NEEDS KNOWN. PATIENT INAPPROPRIATE ASKING STAFF IF HE CAN TOUGH THEIR BOOBS. INCONTINENT OF BOWEL AND BLADDER, CHANGED BRIEF, PARISH CARE PROVIDED. TURNED AND REPOSITIONED THROUGH NIGHT. SAFETY MAINTAINED, CALL KENNY IN REACH.
--- NOTE | 2021-04-05 15:09 | NUR ---
PATIENT SUMMARY; NO CHANGES, PT. ORIENTED TO SELF. APPETITE GOOD , NEEDS SET UP AND ASSIST WITH FEEDING, CAN FEED SELF FINGER FOODS. NO S/S PAIN OR ANY DISCOMFORT. INCONTINENT OF BOWEL AND BLADDER. CALL LIGHT IN REACH.
--- NOTE | 2021-04-05 17:15 | NUR ---
ASSUMPTION OF CARE- NO CHANGE NOTED FROM AM ASSESSMENT. PT IN NO APPARENT DISTRESS. WILL CONTINUE TO MONITOR.
--- NOTE | 2021-04-06 05:37 | NUR ---
ALERT TO SELF. INCONTINENT THROUGH NIGHT, PARISH CARE PROVIDED. TURNED AND REPOSITIONED. AUQUACEL DRESSING CLEAN DRY AND INTACT TO LEFT HIP. SAFETY MAINTAINED, CALL KENNY IN REACH.
--- NOTE | 2021-04-06 07:57 | NUR ---
recvd report from previous shift RN Britt. pt sleeping in bed, bed in lowest position, call light within reach, bed rails up x 2
--- NOTE | 2021-04-06 08:27 | NUR ---
pt sitting up in bed eating breakfast; oriented to self only, answers questions with one work answer occasionally only.
--- NOTE | 2021-04-06 14:11 | NUR ---
ASSUMED CARE OF PT, ASSISTED W/ ATTENDS CHANGE, DENIES ANY DISCOMFORT AT THIS TIME, CONT. TO MONITOR FOR ANY CHANGES.
--- NOTE | 2021-04-06 18:02 | NUR ---
SUMMARY ALERT, ORIENTED TO SELF, PT HASN'B BEEN FEEDING SELF VERY MUCH, FINGER FOOD TRAY ORDERED, APPEARS TO BE IN NO DISCOMFORT, WEARS ATTENDS, WAITING FOR PLACEMENT.
--- NOTE | 2021-04-07 05:51 | NUR ---
PATIENT HAS NOT VOIDED SINCE FOLEYCHATH HAS BEEN REMOVED. BLADDER SCANNED AT 2200, RECEIVED 193ML. FLUIDS ENCOURAGED AT BED SIDE. BLADDER SCANNED AT 0530, RECEIVED 546ML, STRAIGHT CATHED RECEIVED 800ML OF DARK YELLOW URINE. MEDICATED PATIENT FOR PAIN MANAGEMENT DUE TO C/O OF L HIP PAIN, EFFECTIVE. SAFETY MAINTAINED.
--- NOTE | 2021-04-07 17:56 | NUR ---
SHIFT SUMMARY NO ACUTE CHANGES NOTED THROUGH THE DAY. PT HAS NOT BEEN VERY VERBAL TODAY BUT HE APPEARS TO BE ORIENTED TO HIMSELF/ALERT. PT HAS VOIDED, HE WAS INCONTINENT, REFUSED URINAL. PT REPOSITIONED Q2 HRS, HEELS FLOATED. PT IS TOLERATING PO INTAKE, HE IS ABLE TO FEED HIMSELF WITH THE FINGER FOODS ON HIS HIS TRAY. BED ALARM IS ON, BED IN LOW POSITION, CALL LIGHT IN REACH.
--- NOTE | 2021-04-08 04:32 | NUR ---
PT IS IN BED AT THIS TIME WHERE HE REMAINS THROUGHOUT THE NIGHT AND IS RESTING COMFORTABLY. DENIES PAIN AND DISCOMFORT, ASSISTED WITH CARE AND ADLS, ASSISTED WITH BATHROOM AND TOILETING NEEDS. CALL LIGHT PLACED NEAR HIM AND URGED TO CALL FOR HELP WHEN ASSISTANCE IS NEEDED HE IS MONITORED.
--- NOTE | 2021-04-08 17:51 | NUR ---
SHIFT SUMMARY PT HAS RESTED IN BED. EATING MEALS WELL. PAIN WELL MANAGED. REPOSITONED. ORIENTED TO SELF ONLY BUT FOLLOW DIRECTIONS. ONLY SPOKE ONCE OR TWICE & SPOKE VERY SOFTLY.
--- NOTE | 2021-04-09 03:18 | NUR ---
PT IS ALERT TO SELF. DOES SPEAKS WHISPERING. PT CALLS FOR ASSITANCE BUT DOESN'T ASKS FOR ANYTHING WHEN ASSISTANCE IS OFFERED. INCONTINENT OF URINE; WEARING BRIEF. LEFT DRESSING INTACT. DENIES PAIN. TAKES PILLS WHOLE WITHOUT ANY DIFFICULTY.
--- NOTE | 2021-04-09 17:53 | NUR ---
SHIFT SUMMARY PT HAS BEEN PLEASANT & COOPERATIVE T/O SHIFT. EATING, DRINKING WELL. HAD BM.
--- NOTE | 2021-04-10 04:09 | NUR ---
PT ALERT TO SELF. NOT IMPULSIVE. NOT SETTING THE BED ALARM OFF. UNEVENTFUL NIGHT. TOOK PILLS WELL. VOIDING. INCISION COVERED WITH DRESSING CDI. NO C/O PAIN.
--- NOTE | 2021-04-10 18:53 | NUR ---
SHIFT SUMMARY NO ACUTE CHANGES. WAITING FOR PLACEMENT.
--- NOTE | 2021-04-11 06:52 | NUR ---
PT HAD UNEVENTFUL NIGHT; VSS. DRESSING CDI, SITE SOFT TO PALP. PT REPOSITIONED TRACIE, DOES SHIFT SELF IN BED, DOES NOT ATTEMPT TO CLIMB OUT OF BED; BED ALARM ON FOR SAFETY. PT ASSISTED W/PO FLUIDS, ATTENDS CHANGED PRN T/O NIGHT. PT SPEAKS VERY SOFTLY, MINIMAL COMMUNICATION. MED FOR PAIN X1 W/TYLENOL PER FACE SCALE. AWAITING DC PLANNING.
--- NOTE | 2021-04-11 08:42 | NUR ---
CARE ASSUMPTION PT W/ FLAT AFFECT & MINIMAL VERBAL COMMUNICATION. A&O TO SELF. PT SITTING UPRIGHT IN BED, NOT RESPONDING TO Q's OF PAIN OR OTHER ASSESSMENT Q's. PT W/ NO SIGNS OF PAIN OR DISCOMFORT. L HIP DRESSING C/D/I. ATTENDS IN PLACE. PT TOLERATING PO INTAKE. BED ALARM ON. WILL CONTINUE TO MONITOR & PROVIDE CARE.
--- NOTE | 2021-04-11 19:11 | NUR ---
SHIFT SUMMARY PT CONTINUES TO BE MINIMALLY VERBAL. A&O TO SELF. PT VOICE SOFT WHISPER WHEN PT DOES SPEAK. L HIP DRESSING C/D/I. Q2H TURNS. NO EVENTS TODAY. JULIA PRINGLE IN TO SEE PT. PT UNABLE TO SPEAK TO STAFF. DISCHARGE PLACEMENT STILL PENDING.
--- NOTE | 2021-04-12 04:47 | NUR ---
SHIFT SUMMARY Pt A/Ox1. hx of dementia. VSS. Surgical dressing C/D/I. Pt incontinent in brief. No acute events over night. WCTM
--- NOTE | 2021-04-12 17:08 | NUR ---
SHIFT SUMMARY PATIENT ORIENTED TO SELF. BEDREST, TOLERATING FINGER FOOD DIET. TAKES PILLS WHOLE WITH WATER. Q2 HOUR TURNS AND ATTENDS CHANGE PRN. AQUACEL TO LEFT HIP C/D/I. NO REPORT OF PAIN. AWAITING PLACEMENT.
--- NOTE | 2021-04-12 19:10 | NUR ---
recvd report from previous shift GORGE Roger. Pt lying in bed, a/o to self only, mumbled responses to questions. pt shows no grimace/wince/groan with movements, appears to be resting comfortably. bed in lowest position, bed rails up x 3, call light within reach. pt provided with PO fluids, snack, attends change, repositioning.
--- NOTE | 2021-04-13 03:39 | NUR ---
SHIFT SUMMARY: VSS, NO ACUTE CHANGES, PT REMAINED ORIENTED TO SELF, INAPPROPRIATE COMMENTS AT TIMES, DOES NOT ATTEMPT TO GET OOB. PT DENIES PAIN, NO GRIMACE OR WINCE ON REPOSITIONING. PT ABLE TO RESPOND IN MUMBLED WORDS, ONLY CLEAR PERIODICALLY. TOLERATED PO INTAKE. PT HAD ONE SMALL BM THIS SHIFT. ATTENDS CHANGED Q2-3 WHEN REPOSITIONING PT.
--- NOTE | 2021-04-13 07:30 | NUR ---
ASSESSMENT: PT IS SLEEPING. NO S/S DISTRESS. CALL LIGHT IN REACH. VSS. WILL ALLOW REST AND DO FULL ASSESSMENT WHEN PT IS AWAKE AND ALERT.
--- NOTE | 2021-04-13 18:05 | NUR ---
PT HAS BEEN STABLE THIS SHIFT. PT POD #17. PT AQUACEL DRESSING TO LEFT LEG CDI. PT CONFUSED PER BASELINE, COOPERATIVE TO CARE. PT IS NOT VERBAL OFTEN BUT CAN EXPRESS NEEDS. BED ALARM ON FOR SAFETY. PT BEDFAST. TURNING Q2HR. PAS TO BLE. PT TRACIE DIET WELL. PT TAKES PILLS WELL. INCONTINENT OF STOOL AND URINE IN ATTENDS. PT AWAITING PLACEMENT.
--- NOTE | 2021-04-14 16:10 | NUR ---
SHIFT SUMMARY NO ACUTE CHANGES THROUGH SHIFT. PT HAS BEEN PLEASANT AND COOPERATIVE WITH CARE. ABLE TO HELP REPOSITION AND HELP WITH CARE. BED BATH TODAY. DRESSING TO HIP CDI. HE DENIED PAIN. REPOSITIONING SELF IN BED AND HAS BEEN ROTATED ON PILLOWS. AWAITING DISCHARGE PLANS AT THIS TIME.
--- NOTE | 2021-04-15 05:55 | NUR ---
PT IS RESTING IN BED AND IS IN STABLE CONDITION. HE IS ASSISTED WITH CARE AND ADLS, MEDICATED ORDERED, ASSISTED WITH BATHROOM AND TOILETING NEEED. LEFT HIP DRESSING IN PLACE AND IS PATENT, ABLE TO MOVE LEGS TOLERATED. HE WAS GIVEN HIS CALL LIGHT AND WAS REMINDED TO CALL FOR HELP WHEN ASSISTANCE IS NEEDED HE IS MONITORED.
--- NOTE | 2021-04-15 17:22 | NUR ---
SUMMARY NO ACUTE CHANGES T/O SHIFT. DENIED ANY NEEDS T/O DAY. INCONTINENT OF URINE AND STOOL. TOLERATING DIET.
--- NOTE | 2021-04-15 19:30 | NUR ---
RECEIVED REPORT AND ASSUMED CARE OF PT. HE IS SITTING UP IN BED, AWAKE AND ALERT, RESPONDS BY NODDING HIS HEAD TO SOME QUESTIONS. PT DID NOT MAKE ANY VERBALIZATIONS AT THIS TIME.
--- NOTE | 2021-04-16 04:23 | NUR ---
SHIFT SUMMARY: VSS, NO ACUTE EVENTS OVERNIGHT. HE HAS NOT MADE ANY VERBALIZATIONS TO THIS NURSE THIS SHIFT. HE SHAKES HIS HEAD "NO" IN RESPONSE TO YES/NO QUESTIONS. HE IS LYING IN BED WITH THE CALL LIGHT IN REACH. WILL REPORT TO DAY SHIFT RN.
--- NOTE | 2021-04-16 17:19 | NUR ---
SUMMARY NO ACUTE CHANGES T/O SHIFT. PT HAD BM AND VOIDING. EATING WELL. DOES NOT APPEAR TO BE IN ANY DISCOMFORT. CALL LIGHT IN REACH. AWAITING PLACEMENT.
--- NOTE | 2021-04-17 04:59 | NUR ---
LOCKER ATTENDANT SUMMARY NO ACUTE CHANGES THIS SHIFT. PT AAOX2, CAN ANSWER MOST YES/NO QUESTIONS BUT IS SOMETIMES LIMITED IN HIS RESPONSES. BEDBOUND, REQUIRING 2 ASSIST WITH ATTENDS CHANGES AND REPOSITIONING. AQUACEL DRESSING TO L HIP C/D/I. PT DENIES PAIN. VSS, WILL CONTINUE TO MONITOR.
--- NOTE | 2021-04-17 19:09 | NUR ---
SHIFT SUMMARY POD 21 L REINA HIP, ALERT BUT CONFUSED, ABLE TO COMMUNICATE NEEDS BUT SOMETIMES ONLY GIVES MINIMAL RESPONSES, PLEASANT AND COOPERATIVE c ALL NURSING CARE. NO ACUTE EVENTS THIS SHIFT. CALL LIGHT IN REACH, REPORT GIVEN TO DAY RN.
--- NOTE | 2021-04-18 05:24 | NUR ---
PT IS IN BED AT THIS TIME WHERE HE REMAINS DURING THE NIGHT AND IS RESTING IN STABLE CONDITION. HE IS ALERT, AWAKE, AND ORIENTED TO HIMSELF, HAS FLUCTUATION IN HIS MENTATION SECONDARY TO HIS DEMENTIA DX. HE IS ASSISTED WITH CARE AND ADLS, ASSISTED WITH BATHROOM AND TOILETING NEEDS, MEDICATED INDICATED. HE IS ASSISTED WITH POSITION CHANGE TO PROMOTE COMFORT. PT IS RECOVERING FROM LEFT HIP FX REPAIR POST FALL. INCISION SITE IS COVERED WITH DRY AND CLEAN AQUACEL DRSG, NO SWELLING NOTED OR OTHER SIGNS OF COMPLICATIONS NOTED AT THE AFFECTED EXTREMITY. CALL LIGHT GIVEN TO HIM AND REMINDED TO CALL FOR HELP WHEN ASSISTANCE IS NEEDED HE IS MONITORED.
--- NOTE | 2021-04-18 19:06 | NUR ---
SHIFT SUMMARY POD22 REINA HIP, PT CONTINUES TO BE MINIMALLY RESPONSIVE TO VERBAL INQUIRY THOUGH THIS HAS BEEN THE SAME FOR THE FEW DAYS PER PRIOR RN REPORT AND THIS RN PROVIDING CARE PRIOR TO TODAY, PT ABLE TO MAKE NEEDS KNOWN THOUGH RESPONSES ONLY HAVE MINIMAL WORDS. INCONTINENT c ATTENDS IN PLACE. CALL LIGHT IN REACH, REPORT GIVEN TO NOC RN.
--- NOTE | 2021-04-19 04:43 | NUR ---
PT IS IN AT THIS TIME WHERE HE REMAINS THROUGHOUT THE NIGHT AND IS RESTING COMFORTABLY IN STABLE CONDITION. HE IS ALERT, AWAKE, ORIENTED TO HIMSELF BUT IS GENERALLY CONFUSED SECONDARY TO HIS DEMENTIA DX. PT IS RECOVERING FROM LEFT HIP FX REPAIR POST FALL. NO SIGNS OF COMPLICATIONS NOTED IN THE AFFECTED EXTREMITY EVIDENCED BY LACK OF SWELLING, PALPABLE PEDAL PULSE, < 3 SEC CAP REFILL, AND TOLERABLE MOVEMENT. HE IS ASSISTED WITH HIS CARE AND ADLS, ASSISTED WITH BATHROOM AND TOILETING NEEDS, KEPT CLEAN AND DRY, ASSISTED WITH REPOSITIONING TO ENHANCE COMFORT. HIS CALL KENNY GIVEN TO HIM AND TAUGHT HOW TO CALL FOR HELP WHEN ASSISTANCE IS NEEDED HE IS MONITORED.
--- NOTE | 2021-04-19 18:17 | NUR ---
SHIFT SUMMARY TOLERATING FINGER FOOD DIET. ATTENDS CHANGED AND TURNED Q2 HOUR. VSS. ORDER FOR NO IV. TAKES PILLS WHOLE WITH WATER OR APPLESAUCE. PLANNING DISCHARGE TO [facility] ON Thursday04/22/21. WILL REPORT TO LORRY WEIGHER RN.
--- NOTE | 2021-04-20 08:03 | NUR ---
SHIFT SUMMARY POST OP HIP REPAIR, ALERT BUT CONFUSED, MINIMAL VERBAL RESPONSES @ BASELINE BUT ABLE TO ANSWER MOST QUESTIONS, SOMETIMES DOES NOT ANSWER QUESTIONS EVEN WHEN REPEATED. NO ACUTE EVENTS THIS SHIFT, PLAN TO DC THURSDAY TO [facility]. CALL LIGHT IN REACH, REPORT GIVEN TO DAY RN.
--- NOTE | 2021-04-20 19:11 | NUR ---
SHIFT SUMMARY PT HAS BEEN MOSTLY NON-VERBAL THIS SHIFT. HE WAS SOMNOLENT THIS MORINING AND DIFFICULT TO WAKE. AROUND NOON PT WAS WIDE AWAKE AND HAS BEEN THE REMAINDER OF THE SHIFT. PT TOLERATING SOFT BITE SIZE DIET. PT'S SISTER CAME TO SEE HIM AT LUNCH TIME. PLAN FOR DC TO [facility] ON THURSDAY.
--- NOTE | 2021-04-20 20:10 | NUR ---
pt stable and comfortable. Staff states more someulent at times plan is to DC thursday on hospice.
[2021-04-21 04:33] LABS: BASOPHILS ABSOLUTE AUTO 0.08 K/mm3 (0.00-0.23); BASOPHILS PERCENT AUTO 1 % (0-2); EOSINOPHILS ABSOLUTE AUTO 0.47 K/mm3 (0.00-0.68); EOSINOPHILS PERCENT AUTO 7 % (0-6); Hemoglobin 11.1 g/dL (13.5-17.5); IMMATURE GRAN ABSOLUTE AUTO 0.06 K/mm3 (0.00-0.10); IMMATURE GRAN PERCENT AUTO 1 % (0-1); LYMPHOCYTES ABSOLUTE AUTO 2.51 K/mm3 (0.84-5.20); LYMPHOCYTES PERCENT AUTO 37 % (21-46); MONOCYTES ABSOLUTE AUTO 0.65 K/mm3 (0.16-1.47); MONOCYTES PERCENT AUTO 10 % (4-13); Mean Corpuscular HGB 31.8 pg (26.0-34.0); Mean Corpuscular HGB Conc 31.7 g/dL (31.5-36.5); Mean Corpuscular Volume 100 fL (80-100); Mean Platelet Volume 10.4 fL (9.1-12.4); NEUTROPHILS ABSOLUTE AUTO 3.05 K/mm3 (1.96-9.15); NEUTROPHILS PERCENT AUTO 45 % (41-73); Platelet Count 219 K/mm3 (150-400); RDW Coefficient Variation 14.9 % (11.7-14.2); RDW Standard Deviation 55.4 fL (35.1-46.3); Red Blood Cell Count 3.49 M/mm3 (4.30-5.90); White Blood Cell Count 6.82 K/mm3 (4.00-11.30)
[2021-04-21 05:02] LABS: Albumin, Blood 2.6 g/dL (3.4-5.0); Anion Gap 5 mmol/L (6-16); Blood Urea Nitrogen 45 mg/dL (8-24); CO2, Blood 25 mmol/L (21-32); Calcium, Blood 9.1 mg/dL (8.5-10.1); Chloride, Blood 112 mmol/L (98-108); Creatinine, Blood 1.25 mg/dL (0.60-1.20); Glomerular Filtration Rate 56 (60-); Glucose, Blood 91 mg/dL (70-99); Phosphorus, Blood 3.4 mg/dL (2.5-4.9); Potassium, Blood 4.6 mmol/L (3.5-5.5); Sodium, Blood 142 mmol/L (136-145)
--- NOTE | 2021-04-21 05:54 | NUR ---
SHIFT SUMMARY POD25 L REINA HIP ARTHROPLASTY. PT HAS BEEN RESPONSIVE. ABLE TO CARRY CONVERSATION WITH FEW PHRASES. ALERT. PT DENIES PAIN. AQUACEL HAS BEEN REMOVED PER MD ORDER. SURGICAL SITE APPEARS DRY AND INTACT, OPEN TO AIR. PT SLEPT GOOD OVERNIGHT. VOIDING, INCONTINENT - ATTENDS IN PLACED. TOLERATING PO INTAKE. MILDLY HYPOTENSIVE THIS MORNING BUT ASYMPTOMATIC. DENIES CHEST PAIN AND SOB. CALL LIGHT WITHIN REACH. WILL PROVIDE REPORT TO ONCOMING NURSE.
--- NOTE | 2021-04-21 18:12 | NUR ---
pt stable and comfortable.
--- NOTE | 2021-04-21 18:21 | NUR ---
SUMMARY PT ALERT AND ANSWERING SOME QUESTIONS AND HAVING CONVERSATIONS, ABLE TO FEED SELF TODAY, TOLERATING DIET WELL, INCONTINENT AND WEARS ATTENDS, HAD 1 BM TODAY, DENIES ANY PAIN, APPEARS TO BE COMFORTABLE, NO ACUTE CHANGES THIS SHIFT.
--- NOTE | 2021-04-22 05:52 | NUR ---
IMPULSIVE, ATTEMPTING TO GET OUT OF BED. OTHERWISE SLEPT WELL THROUGH NIGHT. DENIED PAIN OR DISCOMFORT. INCISION TO LEFT HIP WELL APPROXI,ATED. SAFETY MAINTAINED, CALL KENNY IN REACH.
--- NOTE | 2021-04-22 08:50 | NUR ---
Pt BP was sof this AM. MAP of 76, notified and BP meds held. MD will d/c BP meds and change code status to DNR. Pt is being d/c today on hospice.
--- NOTE | 2021-04-22 14:02 | NUR ---
Report given to [facility]. Report given to [facility] at [facility].
--- NOTE | 2021-04-22 14:04 | NUR ---
Shift Report. Pt has been alert, but disoriented. VSS on RA, BP was soft in AM and MD is aware and BP meds were held. Incision site looks clean dry and intact, no redness. Small appetite today. Pt has been incontinent to bowel and urine. One BM today.
== END 2021-04-22 14:42 | disposition hospice, inpatient (51) | DRG 522 ==
LOC: ER 12:20 → ERHOLD 16:08 → SURS 16:08
PROVIDERS: Internal Medicine; Nurse Practitioner Acute Care; Orthopaedic Surgery; Physician Assistant; ADMIT Internal Medicine
PROC: 0SRS0JA Replacement of Left Hip Joint, Femoral Surface with Synthetic Substitute, Uncemented, Open Approach (ICD-10-PCS; principal; 2021-03-27 14:00)
DX: S72.002A Fracture of unspecified part of neck of left femur, initial encounter for closed fracture (principal); I13.0 Hypertensive heart and chronic kidney disease with heart failure and stage 1 through stage 4 chronic kidney disease, or unspecified chronic kidney disease; N17.9 Acute kidney failure, unspecified; I50.32 Chronic diastolic (congestive) heart failure; W18.30XA Fall on same level, unspecified, initial encounter; I25.10 Atherosclerotic heart disease of native coronary artery without angina pectoris; J44.9 Chronic obstructive pulmonary disease, unspecified; N18.30 Chronic kidney disease, stage 3 unspecified; Z20.822 Contact with and (suspected) exposure to COVID-19; Z79.899 Other long term (current) drug therapy; I48.0 Paroxysmal atrial fibrillation; Z98.890 Other specified postprocedural states; F03.90 Unspecified dementia, unspecified severity, without behavioral disturbance, psychotic disturbance, mood disturbance, and anxiety; Z74.01 Bed confinement status; Z79.82 Long term (current) use of aspirin; B19.20 Unspecified viral hepatitis C without hepatic coma; Z95.5 Presence of coronary angioplasty implant and graft; F17.210 Nicotine dependence, cigarettes, uncomplicated; G89.4 Chronic pain syndrome; Z86.73 Personal history of transient ischemic attack (TIA), and cerebral infarction without residual deficits
CPT/HCPCS: 0241U; 36415; 70450; 72170; 73502; 80048; 80053; 80069; 82550; 82607; 82746; 83735; 84443; 85025; 85027; 86592; 93005; 93010; 94760; 94762; 97162; 99285-25; A9270; C1713; C1776; J0171; J0360; J0690; J0735; J1100; J1885; J2405; J2704; J2795; J3010; J7030; J7120

== ENCOUNTER 2021-09-07 19:49 | Emergency (ER) | payer MEDICARE, OTHER ==
[~2021-09-07] VITALS: Ht 167.6 cm; Wt 72.6 kg
== END 2021-09-07 21:22 | disposition home or self-care (01) ==
LOC: ER 19:49
DX: Z04.3 Encounter for examination and observation following other accident (principal); F03.90 Unspecified dementia, unspecified severity, without behavioral disturbance, psychotic disturbance, mood disturbance, and anxiety; F17.210 Nicotine dependence, cigarettes, uncomplicated; W05.0XXA Fall from non-moving wheelchair, initial encounter; Y92.129 Unspecified place in nursing home as the place of occurrence of the external cause; Z79.82 Long term (current) use of aspirin; Z79.899 Other long term (current) drug therapy; Z79.01 Long term (current) use of anticoagulants; Z95.5 Presence of coronary angioplasty implant and graft
CPT/HCPCS: 99283

== ENCOUNTER 2022-03-04 20:44 | Emergency (ER) | payer MEDICARE, OTHER ==
[~2022-03-04] VITALS: Ht 172.7 cm; Wt 77.1 kg
[2022-03-04 21:21] LABS: BASOPHILS ABSOLUTE AUTO 0.05 K/mm3 (0.00-0.23); BASOPHILS PERCENT AUTO 1 % (0-2); EOSINOPHILS ABSOLUTE AUTO 0.04 K/mm3 (0.00-0.68); EOSINOPHILS PERCENT AUTO 1 % (0-6); Hematocrit 44.2 % (37.0-53.0); Hemoglobin 14.5 g/dL (13.5-17.5); IMMATURE GRAN ABSOLUTE AUTO 0.03 K/mm3 (0.00-0.10); IMMATURE GRAN PERCENT AUTO 0 % (0-1); LYMPHOCYTES ABSOLUTE AUTO 1.23 K/mm3 (0.84-5.20); LYMPHOCYTES PERCENT AUTO 17 % (21-46); MONOCYTES ABSOLUTE AUTO 1.04 K/mm3 (0.16-1.47); MONOCYTES PERCENT AUTO 14 % (4-13); Mean Corpuscular HGB 31.3 pg (26.0-34.0); Mean Corpuscular HGB Conc 32.8 g/dL (31.5-36.5); Mean Corpuscular Volume 96 fL (80-100); Mean Platelet Volume 9.9 fL (9.1-12.4); NEUTROPHILS PERCENT AUTO 68 % (41-73); Platelet Count 161 K/mm3 (150-400); RDW Coefficient Variation 13.8 % (11.7-14.2); RDW Standard Deviation 48.7 fL (35.1-46.3); Red Blood Cell Count 4.63 M/mm3 (4.30-5.90); White Blood Cell Count 7.39 K/mm3 (4.00-11.30)
[2022-03-04 21:39] LABS: Albumin, Blood 3.3 g/dL (3.4-5.0); Albumin/Globulin Ratio 0.7 (0.8-1.8); Bilirubin, Total 0.7 mg/dL (0.1-1.0); Bun/Creatinine Ratio 25.5 (12.0-20.0); Calcium, Blood 9.1 mg/dL (8.5-10.1); Creatinine, Blood 1.49 mg/dL (0.60-1.20); Globulin, Blood 4.5 g/dL (2.2-4.0); Potassium, Blood 4.7 mmol/L (3.5-5.5); Total Protein, Blood 7.8 g/dL (6.4-8.2)
[2022-03-04 22:56] LABS: Source, Urine Voided
[2022-03-04 23:11] LABS: Appearance, Urine Clear (Clear); Bilirubin, Urine Neg (Neg); Blood, Urine 1+ (Neg); Color, Urine Yellow (P-Yellow); Glucose Qualitative, Urine Neg (Neg); Ketones, Urine 2+ (Neg); Leukocyte Esterase, Urine Neg (Neg); Nitrite, Urine Neg (Neg); Protein, Urine 1+ (Neg); Urobilinogen, Urine 1+ (Normal)
[2022-03-04] MEDS ORDERED: TRAZ50 PO (23:13)
[2022-03-04 23:47] LABS: Influenza A, PCR NEGATIVE (NEGATIVE); Influenza B, PCR NEGATIVE (NEGATIVE); Resp Syncytial Virus, PCR NEGATIVE (NEGATIVE); SARS-Cov-2 (COVID-19) PCR, MMC NEGATIVE (NEGATIVE)
[2022-03-04 23:53] LABS: Bacteria Few /hpf; Red Blood Cells, Urine 0-2 /hpf (0-2); Squamous Epithelial Cells Few /hpf (Few); White Blood Cells, Urine 0-2 /hpf (0-5)
== END 2022-03-05 01:04 | disposition home or self-care (01) ==
LOC: ER 20:44
PROVIDERS: Student in an Organized Health Care Education/Training Program
DX: R50.9 Fever, unspecified (principal); R00.0 Tachycardia, unspecified; I25.10 Atherosclerotic heart disease of native coronary artery without angina pectoris; I48.91 Unspecified atrial fibrillation; Z79.899 Other long term (current) drug therapy; Z79.01 Long term (current) use of anticoagulants; Z20.822 Contact with and (suspected) exposure to COVID-19
CPT/HCPCS: 0241U; 36415; 71045; 80053; 81001; 83605; 85025; 87040; 93005; 93010; A9270; J0696; J7030

== ENCOUNTER 2022-12-22 16:13 | Emergency (ER) | payer MEDICARE, OTHER ==
[~2022-12-22] VITALS: Ht 160 cm; Wt 61.2 kg
[~2022-12-22 16:13] MED LIST changes: +ELIQUIS5 M3 PO; +TRAZ50 PO
[2022-12-22 17:12] LABS: Source, Urine Clean Catch
[2022-12-22 17:34] LABS: Appearance, Urine Clear (Clear); Bilirubin, Urine Neg (Neg); Blood, Urine Neg (Neg); Color, Urine Yellow (P-Yellow); Glucose Qualitative, Urine Neg (Neg); Ketones, Urine Neg (Neg); Leukocyte Esterase, Urine Neg (Neg); Nitrite, Urine Neg (Neg); Protein, Urine Neg (Neg); Specific Gravity, Urine 1.015 (1.003-1.022); Urobilinogen, Urine NORM (Normal)
[2022-12-22 19:16] VITALS: BP 157/94
== END 2022-12-22 20:21 | disposition home or self-care (01) ==
LOC: ER 16:13
PROVIDERS: Student in an Organized Health Care Education/Training Program
DX: R35.0 Frequency of micturition (principal); R32 Unspecified urinary incontinence; R39.198 Other difficulties with micturition; F03.90 Unspecified dementia, unspecified severity, without behavioral disturbance, psychotic disturbance, mood disturbance, and anxiety; I25.10 Atherosclerotic heart disease of native coronary artery without angina pectoris; I48.91 Unspecified atrial fibrillation; Z79.01 Long term (current) use of anticoagulants; Z79.82 Long term (current) use of aspirin; Z79.899 Other long term (current) drug therapy; Z95.5 Presence of coronary angioplasty implant and graft; Z87.891 Personal history of nicotine dependence
CPT/HCPCS: 81003; 99283

== ENCOUNTER → 2023-07-22 | Outpatient (CLI) | payer MEDICARE, OTHER ==
[2023-07-24 12:15] LABS: C DIFFICILE DNA NEGATIVE (Negative)
== END ==
LOC: LAB SHORT 19:30 → LAB 19:30
PROVIDERS: Family Medicine
DX: R19.7 Diarrhea, unspecified (principal)
CPT/HCPCS: 87493; 89055

== ENCOUNTER 2024-04-05 20:32 | Emergency (ER) | payer MEDICARE, OTHER ==
[~2024-04-05] VITALS: Ht 170.2 cm; Wt 65.8 kg
[2024-04-05] MEDS ORDERED: ELIQUIS2.5 MG PO (20:47)
[2024-04-05 21:03] LABS: BASOPHILS ABSOLUTE AUTO 0.09 K/mm3 (0.00-0.23); BASOPHILS PERCENT AUTO 2 % (0-2); EOSINOPHILS ABSOLUTE AUTO 0.56 K/mm3 (0.00-0.68); EOSINOPHILS PERCENT AUTO 9 % (0-6); Hematocrit 45.8 % (37.0-53.0); Hemoglobin 14.5 g/dL (13.5-17.5); IMMATURE GRAN ABSOLUTE AUTO 0.03 K/mm3 (0.00-0.10); IMMATURE GRAN PERCENT AUTO 1 % (0-1); LYMPHOCYTES ABSOLUTE AUTO 2.14 K/mm3 (0.84-5.20); LYMPHOCYTES PERCENT AUTO 35 % (21-46); MONOCYTES ABSOLUTE AUTO 0.49 K/mm3 (0.16-1.47); MONOCYTES PERCENT AUTO 8 % (4-13); Mean Corpuscular HGB 31.3 pg (26.0-34.0); Mean Corpuscular HGB Conc 31.7 g/dL (31.5-36.5); Mean Corpuscular Volume 99 fL (80-100); Mean Platelet Volume 9.9 fL (9.1-12.4); NEUTROPHILS ABSOLUTE AUTO 2.83 K/mm3 (1.96-9.15); NEUTROPHILS PERCENT AUTO 46 % (41-73); Platelet Count 190 K/mm3 (150-400); RDW Coefficient Variation 14.5 % (11.7-14.2); RDW Standard Deviation 53.1 fL (35.1-46.3); Red Blood Cell Count 4.63 M/mm3 (4.30-5.90); White Blood Cell Count 6.14 K/mm3 (4.00-11.30)
[2024-04-05 21:24] LABS: Bun/Creatinine Ratio 21.7 (12.0-20.0); Calcium, Blood 9.7 mg/dL (8.5-10.1); Creatinine, Blood 1.52 mg/dL (0.60-1.20); Magnesium, Blood 2.2 mg/dL (1.6-2.4); Potassium, Blood 5.5 mmol/L (3.5-5.5)
[2024-04-05 23:15] VITALS: BP 113/70
== END 2024-04-05 23:30 | disposition home or self-care (01) ==
LOC: ER 20:32
PROVIDERS: Emergency Medicine
DX: R07.9 Chest pain, unspecified (principal); Z87.891 Personal history of nicotine dependence; Z79.82 Long term (current) use of aspirin; Z79.899 Other long term (current) drug therapy
CPT/HCPCS: 71045; 80048; 83735; 83880; 84484; 85025; 93005; 93010; 99285-25

== ENCOUNTER 2024-04-27 20:22 | Emergency (ER) | payer MEDICARE, OTHER ==
[~2024-04-27] VITALS: Ht 188 cm; Wt 90.7 kg
[~2024-04-27 20:22] MED LIST changes: +ELIQUIS2.5 MG PO
[2024-04-27 20:42] LABS: BASOPHILS ABSOLUTE AUTO 0.11 K/mm3 (0.00-0.23); BASOPHILS PERCENT AUTO 2 % (0-2); EOSINOPHILS ABSOLUTE AUTO 0.53 K/mm3 (0.00-0.68); EOSINOPHILS PERCENT AUTO 8 % (0-6); Hematocrit 47.7 % (37.0-53.0); Hemoglobin 15.4 g/dL (13.5-17.5); IMMATURE GRAN ABSOLUTE AUTO 0.02 K/mm3 (0.00-0.10); IMMATURE GRAN PERCENT AUTO 0 % (0-1); LYMPHOCYTES ABSOLUTE AUTO 1.85 K/mm3 (0.84-5.20); LYMPHOCYTES PERCENT AUTO 28 % (21-46); MONOCYTES ABSOLUTE AUTO 0.49 K/mm3 (0.16-1.47); MONOCYTES PERCENT AUTO 8 % (4-13); Mean Corpuscular HGB 31.4 pg (26.0-34.0); Mean Corpuscular HGB Conc 32.3 g/dL (31.5-36.5); Mean Corpuscular Volume 97 fL (80-100); Mean Platelet Volume 10.2 fL (9.1-12.4); NEUTROPHILS ABSOLUTE AUTO 3.53 K/mm3 (1.96-9.15); NEUTROPHILS PERCENT AUTO 54 % (41-73); Platelet Count 182 K/mm3 (150-400); RDW Coefficient Variation 14.3 % (11.7-14.2); RDW Standard Deviation 52.2 fL (35.1-46.3); White Blood Cell Count 6.53 K/mm3 (4.00-11.30)
[2024-04-27 21:04] LABS: Albumin, Blood 3.7 g/dL (3.4-5.0); Albumin/Globulin Ratio 0.8 (0.8-1.8); Bilirubin, Total 0.4 mg/dL (0.1-1.0); Bun/Creatinine Ratio 26.1 (12.0-20.0); Calcium, Blood 9.7 mg/dL (8.5-10.1); Creatinine, Blood 1.53 mg/dL (0.60-1.20); Globulin, Blood 4.4 g/dL (2.2-4.0); Potassium, Blood 4.9 mmol/L (3.5-5.5); Total Protein, Blood 8.1 g/dL (6.4-8.2)
[2024-04-28 00:45] VITALS: BP 121/95
== END 2024-04-28 01:10 | disposition home or self-care (01) ==
LOC: ER 20:22
PROVIDERS: Student in an Organized Health Care Education/Training Program
DX: R07.89 Other chest pain (principal); R10.13 Epigastric pain; I48.91 Unspecified atrial fibrillation; I25.10 Atherosclerotic heart disease of native coronary artery without angina pectoris; Z95.5 Presence of coronary angioplasty implant and graft; Z87.891 Personal history of nicotine dependence; Z79.01 Long term (current) use of anticoagulants; Z79.82 Long term (current) use of aspirin; Z79.899 Other long term (current) drug therapy; Z59.89 Other problems related to housing and economic circumstances
CPT/HCPCS: 71046; 80053; 84484; 85025; 93005; 93010; 99285-25

== ENCOUNTER 2024-08-14 13:10 | Emergency (ER) | payer MEDICARE, OTHER ==
[~2024-08-14] VITALS: Ht 172.7 cm; Wt 71.7 kg
[2024-08-14] MEDS ORDERED: HYDROmorphone HCl/Pf 1MG SYR IV ONE (14:30)
[2024-08-14 14:43] VITALS: BP 130/72
== END 2024-08-14 16:35 | disposition home or self-care (01) ==
LOC: ER 13:10
DX: R09.02 Hypoxemia (principal); T17.928A Food in respiratory tract, part unspecified causing other injury, initial encounter; I25.10 Atherosclerotic heart disease of native coronary artery without angina pectoris; W44.F3XA Food entering into or through a natural orifice, initial encounter; Z79.01 Long term (current) use of anticoagulants; Z79.899 Other long term (current) drug therapy; Z79.82 Long term (current) use of aspirin; Z95.5 Presence of coronary angioplasty implant and graft; Z87.891 Personal history of nicotine dependence
CPT/HCPCS: 71045; 99285-25

== ENCOUNTER 2024-10-27 10:19 | Emergency (ER) | payer MEDICARE, OTHER ==
[~2024-10-27] VITALS: Ht 170.2 cm; Wt 72.6 kg
[2024-10-27] MEDS ORDERED: NS 1,000 ML IV SCH (10:25)
[2024-10-27 10:28] VITALS: BP 125/82
[2024-10-27] MEDS ORDERED: NITROGLYCERIN0.4 M3 SL (10:38)
[2024-10-27] MEDS ORDERED: MIRT15ST PO (10:38)
[2024-10-27 10:47] LABS: BASOPHILS ABSOLUTE AUTO 0.08 K/mm3 (0.00-0.23); BASOPHILS PERCENT AUTO 1 % (0-2); EOSINOPHILS ABSOLUTE AUTO 0.46 K/mm3 (0.00-0.68); EOSINOPHILS PERCENT AUTO 7 % (0-6); Hematocrit 44.5 % (37.0-53.0); Hemoglobin 14.0 g/dL (13.5-17.5); IMMATURE GRAN ABSOLUTE AUTO 0.03 K/mm3 (0.00-0.10); IMMATURE GRAN PERCENT AUTO 0 % (0-1); LYMPHOCYTES ABSOLUTE AUTO 1.79 K/mm3 (0.84-5.20); LYMPHOCYTES PERCENT AUTO 27 % (21-46); MONOCYTES ABSOLUTE AUTO 0.59 K/mm3 (0.16-1.47); MONOCYTES PERCENT AUTO 9 % (4-13); Mean Corpuscular HGB Conc 31.5 g/dL (31.5-36.5); Mean Corpuscular Volume 96 fL (80-100); NEUTROPHILS ABSOLUTE AUTO 3.77 K/mm3 (1.96-9.15); NEUTROPHILS PERCENT AUTO 56 % (41-73); NRBC ABSOLUTE 0.00 K/mm3 (0.00-0.02); NRBC Auto 0.0 /100 WBC (0.0-0.2); Platelet Count 192 K/mm3 (150-400); RDW Coefficient Variation 13.8 % (11.7-14.2); RDW Standard Deviation 49.4 fL (35.1-46.3)
[2024-10-27 11:08] LABS: Alanine Aminotransfer (ALT/SGP 21 U/L (12-78); Albumin, Blood 3.4 g/dL (3.4-5.0); Albumin/Globulin Ratio 0.8 (0.8-1.8); Anion Gap 9 mmol/L (3-11); Aspartate Aminotrans (AST/SGOT 28 U/L (12-37); Bilirubin, Total 0.5 mg/dL (0.1-1.0); Blood Urea Nitrogen 31 mg/dL (8-24); CO2, Blood 27 mmol/L (21-32); Calcium, Blood 9.1 mg/dL (8.5-10.1); Chloride, Blood 107 mmol/L (98-108); Creatinine, Blood 1.32 mg/dL (0.60-1.20); Ethanol (Alcohol), Blood, Med <3 mg/dL; Globulin, Blood 4.0 g/dL (2.2-4.0); Glucose, Blood 85 mg/dL (70-99); Potassium, Blood 4.8 mmol/L (3.5-5.5); Sodium, Blood 138 mmol/L (136-145); Total Protein, Blood 7.4 g/dL (6.4-8.2)
== END 2024-10-27 13:21 | disposition home or self-care (01) ==
LOC: ER 10:19
PROVIDERS: Emergency Medicine
DX: S00.81XA Abrasion of other part of head, initial encounter (principal); I48.91 Unspecified atrial fibrillation; F03.90 Unspecified dementia, unspecified severity, without behavioral disturbance, psychotic disturbance, mood disturbance, and anxiety; I12.9 Hypertensive chronic kidney disease with stage 1 through stage 4 chronic kidney disease, or unspecified chronic kidney disease; N18.30 Chronic kidney disease, stage 3 unspecified; J44.9 Chronic obstructive pulmonary disease, unspecified; Z79.01 Long term (current) use of anticoagulants; W06.XXXA Fall from bed, initial encounter; Y92.128 Other place in nursing home as the place of occurrence of the external cause
CPT/HCPCS: 70450; 72125; 80053; 80320; 82550; 85025; 93005; 93010; 96360; 99285-25; J7030